=== PATIENT | female | born 1985 | race Caucasian/White ===

== ENCOUNTER 2016-09-02 09:00 | Inpatient (IN) | payer OTHER ==
[~2016-09-02] VITALS: Ht 165.1 cm; Wt 92.7 kg
[~2016-09-02 09:00] MED LIST: OMEP20CA9 PO; TRIA80OI TOP
[2016-09-02] MEDS ORDERED: ONDANSETRON 4 MG INJ IV STA (09:17)
[2016-09-02] MEDS ORDERED: morphine 4 MG/ML VIAL IV STA ×2 (09:17→10:31)
--- NOTE | 2016-09-02 09:37 | ERD ---
ER Documentation Chief Complaint Date/Time DATE: 09/02/16 TIME: 09:34 Chief Complaint ap, hx gallstones HPI Patient is a 31-year-old female who presents to the ED with right upper quadrant and epigastric pain 1 day. She states that she has had this pain in the past and has a history of gallstones. She states that she is scheduled for surgery but is unsure of the day and is waiting to hear which date she will be scheduled this month or next. She states that the pain came on suddenly last night. This is exactly the same pain that she has experienced in the past. She also complains of nausea with no vomiting. She denies radiation of pain. She denies chest pain, cough, shortness of breath or difficulty breathing. She denies headache or dizziness. She denies diarrhea. Or dysuria. Has been taking tramadol for her pain however minimal relief in the last day. ROS All systems reviewed and are negative except as per history of present illness. Medications Home Meds Active Scripts Triamcinolone Acetonide (Triamcinolone Acetonide) 0.025% - 30 Gm Oint..gm., 1 APPLIC TOP BID, #1 TUB Prov:CHEVY BURROUGHS. IT PROFESSIONAL 11/04/15 Omeprazole* (Prilosec*) 20 Mg Capsule.dr, 20 MG PO DAILY for 14 Days, CAP Prov:CHEVY BURROUGHS. IT PROFESSIONAL 11/04/15 Allergies Allergies: Coded Allergies: sulfamethoxazole (Verified Allergy, Unknown, hives, 09/02/16) trimethoprim (Verified Allergy, Unknown, hives, 09/02/16) PMhx/Soc Hx Respiratory Disorders: Yes (asthma) Hx Psychiatric Problems: Yes (schizoprenia) Hx Alcohol Use: Yes (occassional) Hx Substance Use: No Hx Tobacco Use: No Physical Exam Vitals Vital Signs Date Time Temp Pulse Resp B/P Pulse Ox O2 Delivery O2 Flow Rate FiO2 09/02/16 09:02 98.1 88 20 128/75 99 Physical Exam GENERAL: Well-developed, well-nourished female. Appears in distress LUNG: Clear to auscultation bilaterally. No rhonchi, wheezing, rales or coarse breath sounds. HEART: Regular rate and rhythm. No murmurs, rubs or gallops. ABDOMEN: No scars, ecchymosis or rashes noted. Soft, and nondistended. Positive bowel sounds in all four quadrants. No rebound tenderness, no guarding. (-) McBurneys point tenderness. No CVA tenderness. Tenderness in the right upper quadrant and epigastric. BACK: No midline tenderness. Extremities: Equal pulses bilaterally. No peripheral clubbing, cyanosis or edema. No unilateral leg swelling. NEUROLOGIC: Alert and oriented. Moving all four extremities. 5/5 strength in all extremities. Normal speech. Steady gait. SKIN: Normal color. Warm and dry. No rashes or lesions. Capillary refill < 2 seconds Result Diagram: 09/02/1692809/02/16928 Results 24 hrs Laboratory Tests Test 09/02/16 09:29 White Blood Count 7.110^3/ul Red Blood Count 4.4510^6/ul Hemoglobin 12.9g/dl Hematocrit 39.8% Mean Corpuscular Volume 89.4fl Mean Corpuscular Hemoglobin 29.0pg Mean Corpuscular Hemoglobin Concent 32.4g/dl Red Cell Distribution Width 12.8% Platelet Count 71652^3/UL Mean Platelet Volume 9.0fl Neutrophils % 46.1% Lymphocytes % 37.5% Monocytes % 7.9% Eosinophils % 7.8% Basophils % 0.6% Nucleated Red Blood Cells % 0.0/100WBC Neutrophils # 3.310^3/ul Lymphocytes # 2.710^3/ul Monocytes # 0.610^3/ul Eosinophils # 0.610^3/ul Basophils # 0.010^3/ul Nucleated Red Blood Cells # 0.010^3/ul Sodium Level 138mmol/L Potassium Level 4.1mmol/L Chloride Level 105mmol/L Carbon Dioxide Level 23mmol/L Anion Gap 14 Blood Urea Nitrogen 16mg/dl Creatinine 0.89mg/dl Glucose Level 84mg/dl Calcium Level 9.0mg/dl Total Bilirubin 0.3mg/dl Direct Bilirubin 0.00mg/dl Indirect Bilirubin 0.3mg/dl Aspartate Amino Transf (AST/SGOT) 21IU/L Alanine Aminotransferase (ALT/SGPT) 26IU/L Alkaline Phosphatase 57IU/L Total Protein 7.7g/dl Albumin 4.5g/dl Globulin 3.20g/dl Albumin/Globulin Ratio 1.40 Lipase 206U/L Current Medications Medications (Trade) Dose Ordered Sig/Kate Route PRN Reason Start Time Stop Time Status Last Admin Dose Admin Morphine Sulfate (morphine) 4 mg ONCE STAT IV 09/02/16 09:17 09/02/16 09:20 DC 09/02/16 09:30 Ondansetron HCl (Zofran Inj) 4 mg ONCE STAT IV 09/02/16 09:17 09/02/16 09:20 DC 09/02/16 09:30 Morphine Sulfate (morphine) 4 mg ONCE STAT IV 09/02/16 10:31 09/02/16 10:34 DC 09/02/16 10:37 Procedures/MDM ER COURSE: I kept the patient and/or family informed of laboratory and diagnostic imaging results throughout the emergency room course. EKG, MONITORS, & DIAGNOSTIC IMAGING: [place] [id number] Radiology Main Line: [phone] DIAGNOSTIC IMAGING REPORT Patient: MCKENZIE RODRIGUEZ : 1985 Age: 31 Sex: F MR #: [id number] DOS: 09/02/16 0917 Ordering MD: JENNIE REYEZ PA-C Location: [facility] Room/Bed: PROCEDURE: US Abdomen. CLINICAL INDICATION: abdominal pain TECHNIQUE: Multiple real-time images were acquired of the patient's right upper quadrant abdomen and retroperitoneum utilizing a high resolution transducer. COMPARISON: None FINDINGS: The liver demonstrates normal echogenicity. The liver is normal in size and no focal solid lesions are seen. The liver measures 16.7 cm in length. The portal vein is patent with normal direction of flow. No intrahepatic biliary dilatation is seen. Multiple stones are seen within the gallbladder. The gallbladder wall is mildly thickened, measuring 4 mm. There is no pericholecystic fluid noted. The common bile duct measures 4 mm. The visualized portions of the pancreas are unremarkable. The tail of the pancreas is not seen. No free fluid is identified. The right kidney is normal in size, and demonstrate normal echogenicity and cortical thickness. The right kidney measures 10.5 cm in long dimension. There is no evidence of hydronephrosis. There are no kidney stones. RPTAT: AA IMPRESSION: Cholelithiasis with mild gallbladder wall thickening . No evidence of pericholecystic fluid. .Marcelo Christian MD, MD Date Time Electronically viewed and signed by .Marcelo Christian MD, MD on 09/02/2016 10: 21 .S/ CC: JENNIE REYEZ PA-C Zofran, 4 mg of morphine. 4 mg of morphine LAB INTERPRETATION: CBC showed no evidence of systemic infection or severe anemia. CMP showed no evidence of electrolyte abnormalities, severe acidosis, alkalosis, renal failure , or liver disease. Lipase showed no evidence of acute pancreatitis. UA showed no evidence of leukocytes, nitrites or hematuria. Urine test was negative. MEDICAL DECISION MAKING: This is a 31-year-old female who presents with abdominal pain 1 day. Vital signs were reviewed. Patient is afebrile. Patient is not hypoxic. I consulted with regarding this patient who came to examine patient at bedside. He also reviewed her laboratory studies and imaging results. Patient's ultrasound shows that she has cholelithiasis with mild gallbladder wall thickening. I reassess patient after 8 mg of morphine. She stated that her pain is a 5 out of 10. But she states that after the morphine wears off she has an increase in pain. I spoke to Dr. Pan on the phone who stated that he would accept her and admit her to Dr. Fernandez. I consulted with Dr. Perez who will admit patient. Patient was started on zosyn and IV fluids were given. Patient was stable at transfer to ED1. All questions were answered. Departure Diagnosis: Primary Impression: Cholelithiasis Condition: Fair JENNIE REYEZ PA-C Sep 02, 2016 09:36
[2016-09-02 09:39] LABS: ADD SCAN DIFF NO
[2016-09-02 09:43] LABS: BASOPHILS % 0.6 % (0.0-2.0); EOSINOPHILS # 0.6 10^3/ul (0.0-0.5); EOSINOPHILS % 7.8 % (0.0-7.0); HEMATOCRIT 39.8 % (37.0-47.0); HEMOGLOBIN 12.9 g/dl (12.0-16.0); LYMPHOCYTES # 2.7 10^3/ul (0.8-2.9); LYMPHOCYTES % 37.5 % (15.0-51.0); MEAN CORPUSCULAR HGB CONC 32.4 g/dl (32.0-37.0); MEAN CORPUSCULAR VOLUME 89.4 fl (82.0-101.0); MONOCYTE # 0.6 10^3/ul (0.3-0.9); MONOCYTES % 7.9 % (0.0-11.0); NEUTROPHIL # 3.3 10^3/ul (1.6-7.5); NEUTROPHILS % 46.1 % (39.0-77.0); PLATELET COUNT 364 10^3/UL (140-415); RED BLOOD COUNT 4.45 10^6/ul (4.20-5.40); RED CELL DISTRIBUTION WIDTH 12.8 % (11.5-14.5); WHITE BLOOD COUNT 7.1 10^3/ul (4.8-10.8)
[2016-09-02 09:49] LABS: ALBUMIN 4.5 g/dl (3.3-4.9)
[2016-09-02 09:50] LABS: POTASSIUM 4.1 mmol/L (3.5-5.1)
[2016-09-02 09:52] LABS: BILIRUBIN,INDIRECT 0.3 mg/dl (0-1.1); BILIRUBIN,TOTAL 0.3 mg/dl (0.2-1.3); CREATININE 0.89 mg/dl (0.44-1.00)
[2016-09-02 09:53] LABS: ALBUMIN/GLOBULIN RATIO 1.4; TOTAL PROTEIN 7.7 g/dl (6.1-8.1)
--- NOTE | 2016-09-02 10:21 | RADRPT ---
PROCEDURE: US Abdomen. CLINICAL INDICATION: abdominal pain TECHNIQUE: Multiple real-time images were acquired of the patient's right upper quadrant abdomen a nd retroperitoneum utilizing a high resolution transducer. COMPARISON: None FINDINGS: The liver demonstrates normal echogenicity. The liver is normal in size and no focal solid lesions are seen. The liver measures 16.7 cm in length. The portal vein is patent with normal direction of f low. No intrahepatic biliary dilatation is seen. Multiple stones are seen within the gallbladder. The gallbladder wall is mildly thickened, measuring 4 mm. There is no pericholecystic fluid noted. The common bile duct measures 4 mm. The visualized portions of the pancreas are unremarkable. The tail of the pancreas is not seen. No free fluid is identified. The right kidney is normal in size, and demonstrate normal echogenicity and cortical thickness. The right kidney measures 10.5 cm in long dimension. There is no evidence of hydronephrosis. There are no kidney stones. RPTAT: AA IMPRESSION: Cholelithiasis with mild gallbladder wall thickening . No evidence of pericholecystic fluid. .Marcelo Christian MD, MD Date Time Electronically viewed and signed by .Marcelo Christian MD, on 09/02/2016 10:21 .S/
[2016-09-02 11:53] LABS: URINE COLOR LT. YELLOW (YELLOW); URINE GLUCOSE (Dip) NEGATIVE (NEGATIVE); URINE TOTAL PROTEIN (Dip) NEGATIVE (NEGATIVE)
[2016-09-02 11:54] LABS: ADD UMIC YES; URINE BILIRUBIN (Dip) NEGATIVE (NEGATIVE); URINE BLOOD (Dip) TRACE (NEGATIVE); URINE KETONES (Dip) NEGATIVE (NEGATIVE); URINE LEUKOCYTE ESTERASE (Dip) NEGATIVE (NEGATIVE); URINE NITRITE (Dip) NEGATIVE (NEGATIVE); URINE RBCS 0-2 /HPF (0); URINE UROBILINOGEN (Dip) 0.2 E.U./dL (0.1-1.0)
[2016-09-02 12:00] VITALS: TEMP 98.3
[2016-09-02] MEDS ORDERED: SOD CHLORIDE 0.9% 1,000 ML IV ONE (12:00)
[2016-09-02] MEDS ORDERED: PIPER-TAZO 3.375 GM IV (PMX) 100 ML IVPB ONE (12:00)
--- NOTE | 2016-09-02 12:19 | EN ---
Date/Time of Note Date/Time of Note DATE: 09/02/16 TIME: 12:15 ER Progress Note I have seen and evaluated the patient along with the PA and/or LOSS PREVENTION/SAFETY DISTRICT MANAGER provider. I agree with the evaluation and plan of care. Please see their documentation for full ER course and evaluation. In short: This is a pleasant 31-year-old female with prior history of cholelithiasis who presents with abdominal pain. On exam: Focal tenderness to the right upper quadrant, no peritonitis Assessment and plan: Gallbladder ultrasound shows early gallbladder wall thickening. No leukocytosis , no evidence of hepatobiliary obstruction. Her general surgeon, Dr. Sarmiento would like the patient admitted for evaluation and treatment of acute cholecystitis with surgical intervention. The patient was written for antibiotics, given IV fluids. Her pain is well controlled. Dr. Sarmiento would like Dr. Fernandez to admit the patient. Accepting care team and consultations: I discussed the current laboratory data, diagnostic imaging and emergency care provided. Admitting team: Dr. Fernandez Admitting team indication: Insurance directed Consulting services: General surgeon CARLOS Mendoza MD Sep 02, 2016 12:19
[2016-09-02] MEDS ORDERED: ONDANSETRON 4 MG INJ IV PRN ×2 (12:30→18:00)
[2016-09-02] MEDS ORDERED: ACETAMINOPHEN 325 MG TAB PO PRN (12:30)
--- NOTE | 2016-09-02 13:07 | CONS ---
DATE OF ADMISSION: 09/02/2016 DATE OF CONSULTATION: 09/02/2016 HISTORY OF PRESENT ILLNESS: This is a 31-year-old female who was scheduled to have a laparoscopic c holecystectomy, presenting to the ER with nausea and acute abdominal pain. She was evaluated by the ER doctor and underwent imaging with an ultrasound, shows cholelithiasis with mild gallbladder wall thickening, no evidence of pericholecystic fluid. She appears to have intractable pain and nausea and is unable to have any tolerance of oral diet and presents to the ER. PAST MEDICAL HISTORY: None. PAST SURGICAL HISTORY: None. ALLERGIES: SEPTRA WITH RASHES. SOCIAL HISTORY: Denies any smoking or tobacco. REVIEW OF SYSTEMS: All negative except for what was mentioned in the HPI. MEDICATIONS: 1. Omeprazole. 2. Triamcinolone: VITAL SIGNS: Temperature 98.3, pulse is 62, respiratory rate is 20, blood pressure is 114/63, pulse oximetry is 100%. LABORATORY DATA: White blood cell count 7.1, hemoglobin 12.9, platelets 364. Chemistries: Sodium 138, potassium 4.1, chloride 105, carbon dioxide 23, BUN 16, creatinine 0.89, glucose 94, calcium 9. 0. Total bilirubin 0.3, AST 21, ALT 26, alkaline phosphatase 57, lipase is 206. PHYSICAL EXAMINATION: GENERAL: In no acute distress. CARDIOVASCULAR: Regular rate and rhythm. LUNGS: Clear to auscultation. ABDOMEN: Focal right upper quadrant tenderness. No peritoneal signs, no rebound tenderness. ASSESSMENT AND PLAN: This is a 31-year-old female with symptoms of cholecystitis versus severe intr actable pain and cholelithiasis. The patient will be admitted for IV antibiotics and we will schedu le for laparoscopic cholecystectomy. Dictated By: ANAHI MORA/MILTON Conf#: [id number] DID#: [id number]
[2016-09-02 15:34] VITALS: BP 110/62; PULSE 64; RESP 18
[2016-09-02 15:41] VITALS: Ht 165.1 cm; Wt 92.7 kg
[2016-09-02] MEDS: D5W-0.45 NACL + KCL 20 MEQ 1,000 ML IV SCH (15:57)
[2016-09-02] MEDS: DIPHENHYDRAMINE 50 MG INJ IV PRN ×2 (15:57→21:35)
[2016-09-02] MEDS: morphine 2 MG INJ IV PRN ×2 (15:58→20:49)
--- NOTE | 2016-09-02 17:53 | HP ---
DATE OF ADMISSION: 09/02/2016 CHIEF COMPLAINT: Right upper quadrant pain. HISTORY OF PRESENT ILLNESS: The patient is a 31-year-old female with known history of cholelithiasi s and has had multiple episodes of biliary colic and was seen by Dr. Sarmiento as an outpatient. The nasrin ent was scheduled to undergo elective laparoscopic cholecystectomy as an outpatient; however, she pr esented to the ER with right upper quadrant pain associated with nausea. The patient did not have a ny fever or chills. No history of dysuria or hematuria. No history of headache, dizziness, syncope . No history of bleeding from any site. Patient is being admitted for further evaluation. PAST SURGICAL HISTORY: None. ALLERGIES: SULFA. SOCIAL HISTORY: No smoking, no alcohol. MEDICATIONS PRIOR TO ADMISSION: 1. Ultram. 2. Omeprazole. PHYSICAL EXAMINATION: GENERAL: The patient is conscious, awake, alert, fairly oriented. VITAL SIGNS: Temperature 97.8, pulse 64, respirations 18, blood pressure 110/62, O2 saturation 96 o n room air. HEENT: Conjunctivae and lids are normal. Oropharynx clear. NECK: No mass, no thyromegaly. CHEST: Fairly clear. CARDIOVASCULAR: S1, S2 normal. No murmur. ABDOMEN: Soft. Right upper quadrant tenderness present. No guarding or rigidity. Bowel sounds pr esent. EXTREMITIES: No leg edema. NEUROLOGIC: The patient is awake, alert, fairly oriented with no gross focal deficit. LABORATORY DATA: WBC 7.1, hemoglobin 12.9, platelets 364. Chem 18 normal. Lipase normal. Gallbla dder ultrasound revealed cholelithiasis with mild gallbladder wall thickening. IMPRESSION: Acute cholecystitis due to gallstones. PLAN: Patient admitted on medical floor. Patient will be kept n.p.o. and will be started on IV flu id, IV Zosyn, IV morphine, IV Zofran, and will use SCD for DVT prophylaxis. Patient has been seen b y Dr. Sarmiento and will be taken to ____. Plan of care discussed with patient's family. Dictated By: FILEMON WIN/MILTON Conf#: [id number] DID#: [id number]
[2016-09-02 21:08] VITALS: BP 105/62; RESP 20
[2016-09-02] MEDS: PIPER-TAZO 3.375 GM IV (PMX) 100 ML IVPB SCH (21:30)
[2016-09-03] VITALS (14 sets, daily range): BP systolic 95–120; BP diastolic 46–64; PULSE 48–58; RESP 16–24
[2016-09-03] MEDS: morphine 2 MG INJ IV PRN ×5 (00:46→21:41)
[2016-09-03] MEDS: D5W-0.45 NACL + KCL 20 MEQ 1,000 ML IV SCH ×3 (01:30→22:34)
[2016-09-03] MEDS: DIPHENHYDRAMINE 50 MG INJ IV PRN ×2 (04:30→10:57)
[2016-09-03] MEDS: PIPER-TAZO 3.375 GM IV (PMX) 100 ML IVPB SCH ×3 (05:18→22:34)
[2016-09-03] MEDS ORDERED: LIDOCAINE 2% (SDV) 5 ML INJ ONE (07:00)
[2016-09-03] MEDS ORDERED: ROCURONIUM 50 MG INJ ONE (07:00)
[2016-09-03 07:11] LABS: ADD SCAN DIFF NO
[2016-09-03 07:23] LABS: BASOPHILS % 0.5 % (0.0-2.0); EOSINOPHILS # 0.4 10^3/ul (0.0-0.5); HEMATOCRIT 36.9 % (37.0-47.0); HEMOGLOBIN 11.8 g/dl (12.0-16.0); LYMPHOCYTES # 2.1 10^3/ul (0.8-2.9); LYMPHOCYTES % 35.2 % (15.0-51.0); MEAN CORPUSCULAR HEMOGLOBIN 28.9 pg (29.0-33.0); MEAN CORPUSCULAR VOLUME 90.2 fl (82.0-101.0); MEAN PLATELET VOLUME 9.2 fl (7.4-10.4); MONOCYTE # 0.4 10^3/ul (0.3-0.9); NEUTROPHILS % 50.1 % (39.0-77.0); PLATELET COUNT 301 10^3/UL (140-415); RED BLOOD COUNT 4.09 10^6/ul (4.20-5.40)
[2016-09-03 07:34] LABS: POTASSIUM 3.8 mmol/L (3.5-5.1)
[2016-09-03 07:36] LABS: CREATININE 0.84 mg/dl (0.44-1.00)
[2016-09-03 07:37] LABS: CALCIUM 8.4 mg/dl (8.4-10.2)
--- NOTE | 2016-09-03 18:34 | PN ---
Date/Time of Note Date/Time of Note DATE: 09/03/16 TIME: 18:32 Assessment/Plan Lines/Catheters IV Catheter Type (from Nrsg): Peripheral IV Urinary Cath still in place: No Subjective 24 Hr Interval Summary Free Text/Dictation Patient seen at 1650- scheduled for surgery . Denies any complaints. Family at bed side- all qs answered. Eyes: no complaints ENT: no complaints Respiratory: no complaints Cardiovascular: no complaints Gastrointestinal: pain Genitourinary: no complaints Musculoskeletal: no complaints Skin: no complaints Neurologic: no complaints Endocrine: no complaints Lymphatic: no complaints Psychological: no complaints Immunologic: no complaints Exam/Review of Systems Vital Signs Vitals Vital Signs Date Time Temp Pulse Resp B/P Pulse Ox O2 Delivery O2 Flow Rate FiO2 09/03/16 17:13 97.7 57 16 106/59 95 Room Air Intake and Output 09/02/16 09/02/16 09/03/16 15:00 23:00 07:00 Intake Total 100 ml 900 ml Balance 100 ml 900 ml Exam Constitutional: alert, oriented, well developed Psych: nl mood/affect Head: atraumatic Eyes: EOMI ENMT: nl external ears & nose Neck: non-tender Respiratory: clear to auscultation Cardiovascular: nl pulses Gastrointestinal: soft, tender Musculoskeletal: nl extremities to inspection Neurological: nl mental status, nl speech, nl strength Lymph: nontender Results Result Diagram: 09/03/16 0606 09/03/16 0606 Results 24 hrs Laboratory Tests Test 09/03/16 06:06 White Blood Count 6.0 Red Blood Count 4.09 L Hemoglobin 11.8 L Hematocrit 36.9 L Mean Corpuscular Volume 90.2 Mean Corpuscular Hemoglobin 28.9 L Mean Corpuscular Hemoglobin Concent 32.0 Red Cell Distribution Width 13.0 Platelet Count 301 Mean Platelet Volume 9.2 Neutrophils % 50.1 Lymphocytes % 35.2 Monocytes % 7.0 Eosinophils % 7.0 Basophils % 0.5 Nucleated Red Blood Cells % 0.0 Neutrophils # 3.0 Lymphocytes # 2.1 Monocytes # 0.4 Eosinophils # 0.4 Basophils # 0.0 Nucleated Red Blood Cells # 0.0 Sodium Level 137 Potassium Level 3.8 Chloride Level 105 Carbon Dioxide Level 24 Anion Gap 12 Blood Urea Nitrogen 10 Creatinine 0.84 Glucose Level 92 Calcium Level 8.4 Medications Medications Current Medications Ondansetron HCl 4 mg 4 mg Q6H PRN IV NAUSEA AND/OR VOMITING Last administered on 09/03/16 09:36; Admin Dose 4 MG; Start 09/02/16 at 18:00 Potassium Chloride/Dextrose/ Sod Cl 1,000 ml @ 100 mls/hr Q10H IV Last administered on 09/03/16 07:42; Admin Dose 100 MLS/HR; Start 09/02/16 at 15:30 Piperacillin Sod/ Tazobactam Sod (Zosyn 3.375gm/ 100 ml (Pmx)) 100 ml @ 200 mls /hr Q8 IVPB Last administered on 09/03/16 14:34; Admin Dose 200 MLS/HR; Start 09/02/16 at 22:00 Morphine Sulfate (morphine) 2 mg Q3H PRN IV PAIN LEVEL 7-10 Last administered on 09/03/16 14:31; Admin Dose 2 MG; Start 09/02/16 at 15:30 Diphenhydramine HCl (Benadryl) 25 mg Q6H PRN IV ITCHING Last administered on 10:57; Admin Dose 25 MG; Start 09/02/16 at 15:30 CARL MIRANDA Sep 03, 2016 18:34
[2016-09-03] MEDS ORDERED: BUPIVACAINE 0.25% (MPF) 30 ML INJ ONE (18:37)
[2016-09-03] MEDS ORDERED: PROPOFOL 60 ML ONE (19:04)
[2016-09-03] MEDS ORDERED: MIDAZOLAM 1 MG/ML 2 ML INJ ONE ×2 (19:05→20:01)
[2016-09-03] MEDS ORDERED: FENTAnyl 50 MCG/ML VIAL ONE (19:06)
[2016-09-03] MEDS ORDERED: CEFAZOLIN 1 GM INJ ONE (19:26)
[2016-09-03] MEDS ORDERED: DEXAMETHASONE 4 MG/ML 1 ML INJ ONE (19:35)
[2016-09-03] MEDS ORDERED: ONDANSETRON 4 MG INJ ONE (19:35)
[2016-09-03] MEDS ORDERED: LACTATED RINGER'S 1,000 ML IV SCH (19:37)
[2016-09-03] MEDS ORDERED: HYDROmorphONE (0.2 MG/ML) 10ML SYG IV ONE (19:57)
[2016-09-03] MEDS ORDERED: HYDROCODONE/APAP (5/325) TAB PO PRN (20:00)
[2016-09-03] MEDS ORDERED: morphine 2 MG INJ IV PRN (20:00)
[2016-09-03] MEDS ORDERED: LABETALOL HCL 20MG INJ IV PRN (20:00)
[2016-09-03] MEDS ORDERED: HYDROmorphONE (0.2 MG/ML) 10ML SYG IV PRN ×3 (20:00)
[2016-09-03] MEDS ORDERED: hydrALAzine 20 MG INJ IV PRN (20:00)
[2016-09-03] MEDS ORDERED: EPHEDrine SULFATE 50 MG/5 ML SYG IV PRN (20:00)
[2016-09-03] MEDS ORDERED: ONDANSETRON 4 MG INJ IV PRN (20:00)
[2016-09-03] MEDS ORDERED: MEPERIDINE 25 MG INJ IV PRN (20:00)
[2016-09-03] MEDS ORDERED: FENTAnyl 50 MCG/ML VIAL IV PRN ×3 (20:00)
--- NOTE | 2016-09-03 20:47 | OPR ---
DATE OF OPERATION: 09/02/2016 INDICATION: This is a 31-year-old female with symptomatic gallstones and evidence of cholecystitis. She presented to the ER and was admitted because of intractable pain and was unable to tolerate p. o. She is taken to the OR for laparoscopic cholecystectomy. Risks, alternatives, benefits, and per sonnel were discussed with the patient. Patient expressed understanding and consents to the operati on. PREOPERATIVE DIAGNOSIS: Cholecystitis and symptomatic cholelithiasis. POSTOPERATIVE DIAGNOSIS: Cholecystitis and symptomatic cholelithiasis. OPERATION: Laparoscopic cholecystectomy. SURGEON: Lesli Sarmiento MD SPECIMENS: Gallbladder. COMPLICATIONS: None. ANESTHESIA: General. PROCEDURE: The patient was taken to the OR and prepped and draped in the usual sterile fashion. Walters rgical timeout was performed. IV antibiotics were given. Infraumbilical incision was made transver sely with a 15 blade. Dissection cautery was carried down to the fascia which was divided with curv ed Willis scissors. An 0 Vicryl U-stitch was placed into the fascia. Balloon Emily trocar was intro duced. Pneumoperitoneum was established. Midepigastric 12 mm optical trocar, right upper quadrant and right upper flank 5 mm optical trocars are placed under direct visualization. Upon initial insp ection, there were some adhesions to the gallbladder which were taken down bluntly. The cystic duct is identified. The critical view is established. The cystic duct and cystic artery are divided us ing a 35 mm [place] vascular load stapler. The gallbladder was taken off the gallbladder bed. Stap le lines reinforced with clips. There was good hemostasis. Gallbladder is retrieved using EndoCatc h bag. Ports were removed under direct visualization. The 0 Vicryl U-stitch was tied down. Skin w as closed using skin aretha. Local anesthesia was injected. Dry dressings were applied. Dictated By: LESLI SARMIENTO MD SB/MILTON Conf#: [id number] DID#: [id number]
[2016-09-03] MEDS: CEFAZOLIN 2 GM/50 ML (PMX) 50 ML IVPB SCH (23:12)
[2016-09-03 23:59] LABS: ADD SCAN DIFF NO
[2016-09-04 00:01] LABS: ABNORMAL IP MESSAGE 1; BASOPHILS % 0.1 % (0.0-2.0); EOSINOPHILS % 0.1 % (0.0-7.0); HEMATOCRIT 36.6 % (37.0-47.0); HEMOGLOBIN 11.8 g/dl (12.0-16.0); LYMPHOCYTES # 0.6 10^3/ul (0.8-2.9); LYMPHOCYTES % 5.1 % (15.0-51.0); MEAN CORPUSCULAR HEMOGLOBIN 28.6 pg (29.0-33.0); MEAN CORPUSCULAR HGB CONC 32.2 g/dl (32.0-37.0); MEAN CORPUSCULAR VOLUME 88.6 fl (82.0-101.0); MEAN PLATELET VOLUME 9.1 fl (7.4-10.4); MONOCYTE # 0.1 10^3/ul (0.3-0.9); MONOCYTES % 0.5 % (0.0-11.0); NEUTROPHIL # 10.9 10^3/ul (1.6-7.5); NEUTROPHILS % 93.9 % (39.0-77.0); PLATELET COUNT 324 10^3/UL (140-415); RED BLOOD COUNT 4.13 10^6/ul (4.20-5.40); RED CELL DISTRIBUTION WIDTH 12.7 % (11.5-14.5); WHITE BLOOD COUNT 11.7 10^3/ul (4.8-10.8)
[2016-09-04 00:19] LABS: ALBUMIN 3.8 g/dl (3.3-4.9); ALBUMIN/GLOBULIN RATIO 1.31; BILIRUBIN,INDIRECT 0.4 mg/dl (0-1.1); BILIRUBIN,TOTAL 0.4 mg/dl (0.2-1.3); CALCIUM 8.5 mg/dl (8.4-10.2); CREATININE 0.73 mg/dl (0.44-1.00); POTASSIUM 4.1 mmol/L (3.5-5.1); TOTAL PROTEIN 6.7 g/dl (6.1-8.1)
[2016-09-04] MEDS: morphine 2 MG INJ IV PRN ×6 (02:34→17:38)
[2016-09-04] MEDS: CEFAZOLIN 2 GM/50 ML (PMX) 50 ML IVPB SCH ×2 (04:40→11:10)
[2016-09-04] MEDS: PIPER-TAZO 3.375 GM IV (PMX) 100 ML IVPB SCH ×3 (06:10→22:06)
[2016-09-04 07:11] LABS: ADD SCAN DIFF NO
[2016-09-04] MEDS: D5W-0.45 NACL + KCL 20 MEQ 1,000 ML IV SCH ×3 (07:16→16:47)
[2016-09-04 07:31] LABS: BASOPHILS % 0.2 % (0.0-2.0); EOSINOPHILS % 0.2 % (0.0-7.0); HEMATOCRIT 37.4 % (37.0-47.0); HEMOGLOBIN 12.3 g/dl (12.0-16.0); LYMPHOCYTES # 0.6 10^3/ul (0.8-2.9); LYMPHOCYTES % 10.7 % (15.0-51.0); MEAN CORPUSCULAR HEMOGLOBIN 28.9 pg (29.0-33.0); MEAN CORPUSCULAR HGB CONC 32.9 g/dl (32.0-37.0); MEAN PLATELET VOLUME 9.4 fl (7.4-10.4); MONOCYTE # 0.1 10^3/ul (0.3-0.9); MONOCYTES % 1.4 % (0.0-11.0); NEUTROPHIL # 5.1 10^3/ul (1.6-7.5); NEUTROPHILS % 87.2 % (39.0-77.0); PLATELET COUNT 343 10^3/UL (140-415); RED BLOOD COUNT 4.25 10^6/ul (4.20-5.40); RED CELL DISTRIBUTION WIDTH 12.5 % (11.5-14.5); WHITE BLOOD COUNT 5.8 10^3/ul (4.8-10.8)
[2016-09-04 07:42] LABS: POTASSIUM 4.4 mmol/L (3.5-5.1)
[2016-09-04 07:44] LABS: ALBUMIN/GLOBULIN RATIO 1.29; BILIRUBIN,INDIRECT 0.5 mg/dl (0-1.1); BILIRUBIN,TOTAL 0.5 mg/dl (0.2-1.3); CALCIUM 8.8 mg/dl (8.4-10.2); CREATININE 0.7 mg/dl (0.44-1.00); TOTAL PROTEIN 7.1 g/dl (6.1-8.1)
[2016-09-04 08:16] VITALS: BP 114/56; PULSE 54; RESP 18
[2016-09-04 08:46] VITALS: BP 114/61; RESP 20
--- NOTE | 2016-09-04 12:37 | PN ---
Date/Time of Note Date/Time of Note DATE: 09/04/16 TIME: 12:36 Assessment/Plan VTE Prophylaxis VTE Prophylaxis Intervention: other Lines/Catheters [facility] Peripheral IV Urinary Cath still in place: No Assessment/Plan Chief Complaint/Hosp Course 1) cholelithiasis - s/p lap cholecystectomy - monitor Problems: Subjective 24 Hr Interval Summary Free Text/Dictation Patient has no complaints Exam/Review of Systems Vital Signs Vitals Vital Signs Date Time Temp Pulse Resp B/P Pulse Ox O2 Delivery O2 Flow Rate FiO2 09/04/16 08:46 98.7 51 20 114/61 100 09/04/16 08:16 Nasal Cannula 2.0 Intake and Output 09/03/16 09/03/16 09/04/16 15:00 23:00 07:00 Intake Total 200 ml 1300 ml 890 ml Output Total 5 ml Balance 200 ml 1295 ml 890 ml Exam Constitutional: well developed Head: atraumatic, normocephalic Respiratory: clear to auscultation Cardiovascular: regular rate and rhythm Gastrointestinal: non-tender, soft Extremities: normal pulses Results Result Diagram: 09/04/16 0524 09/04/16 0524 Results 24 hrs Laboratory Tests Test 09/03/16 23:36 09/04/16 05:24 White Blood Count 11.7 #H 5.8 # Red Blood Count 4.13 L 4.25 Hemoglobin 11.8 L 12.3 Hematocrit 36.6 L 37.4 Mean Corpuscular Volume 88.6 88.0 Mean Corpuscular Hemoglobin 28.6 L 28.9 L Mean Corpuscular Hemoglobin Concent 32.2 32.9 Red Cell Distribution Width 12.7 12.5 Platelet Count 324 343 Mean Platelet Volume 9.1 9.4 Neutrophils % 93.9 H 87.2 H Lymphocytes % 5.1 L 10.7 L Monocytes % 0.5 1.4 Eosinophils % 0.1 0.2 Basophils % 0.1 0.2 Nucleated Red Blood Cells % 0.0 0.0 Neutrophils # 10.9 H 5.1 Lymphocytes # 0.6 L 0.6 L Monocytes # 0.1 L 0.1 L Eosinophils # 0.0 0.0 Basophils # 0.0 0.0 Nucleated Red Blood Cells # 0.0 0.0 Sodium Level 134 L 137 Potassium Level 4.1 4.4 Chloride Level 106 104 Carbon Dioxide Level 22 21 Anion Gap 10 16 Blood Urea Nitrogen 7 6 L Creatinine 0.73 0.70 Glucose Level 142 # 146 Calcium Level 8.5 8.8 Total Bilirubin 0.4 0.5 Direct Bilirubin 0.00 0.00 Indirect Bilirubin 0.4 0.5 Aspartate Amino Transf (AST/SGOT) 204 H 173 H Alanine Aminotransferase (ALT/SGPT) 131 H 155 H Alkaline Phosphatase 84 84 Total Protein 6.7 # 7.1 Albumin 3.8 4.0 Globulin 2.90 3.10 Albumin/Globulin Ratio 1.31 1.29 Medications Medications Current Medications Ondansetron HCl 4 mg 4 mg Q6H PRN IV NAUSEA AND/OR VOMITING Last administered on 09/03/16 09:36; Admin Dose 4 MG; Start 09/02/16 at 18:00 Potassium Chloride/Dextrose/ Sod Cl 1,000 ml @ 100 mls/hr Q10H IV Last administered on 09/03/16 22:34; Admin Dose 100 MLS/HR; Start 09/02/16 at 15:30 Piperacillin Sod/ Tazobactam Sod (Zosyn 3.375gm/ 100 ml (Pmx)) 100 ml @ 200 mls /hr Q8 IVPB Last administered on 09/04/16 06:10; Admin Dose 200 MLS/HR; Start 09/02/16 at 22:00 Morphine Sulfate (morphine) 2 mg Q3H PRN IV PAIN LEVEL 7-10 Last administered on 09/04/16 11:13; Admin Dose 2 MG; Start 09/02/16 at 15:30 Diphenhydramine HCl 25 mg 25 mg Q6H PRN IV ITCHING Last administered on 10:57; Admin Dose 25 MG; Start 09/02/16 at 15:30 Cefazolin Sodium/ Dextrose (Ancef 2 Gm/50 ml (Pmx)) 50 ml @ 100 mls/hr Q8H IVPB Last administered on 09/04/16 11:10; Admin Dose 100 MLS/HR; Start at 20:00; Stop 09/04/16 at 19:59 Morphine Sulfate (morphine) 2 mg Q2H PRN IV PAIN LEVEL 6-10; Start 09/03/16 at 20:00 CAMILO WIGGINS Sep 04, 2016 12:36
[2016-09-04] MEDS: HYDROCODONE/APAP (5/325) TAB PO PRN (20:45)
[2016-09-04 21:06] VITALS: BP 108/58; RESP 19
--- NOTE | 2016-09-04 23:45 | PN ---
DATE: SUBJECTIVE: Complains of too much pain, has been getting morphine every 2 hours, barely has been ou t of bed and walking around. No bowel movement, no passing gas, has tolerated food to some extent. OBJECTIVE: VITAL SIGNS: 98.7, heart rate 51, respiration 20, blood pressure 114/61, saturation 100% on room ai r. LABS: Today, AST 173, ALT 155. Bilirubin total 0.5. Hematology: WBC 5800, hemoglobin 12.3, neutr ophils 87%, high. Platelet is 343. ABDOMEN: Relatively soft, some tenderness in the right upper quadrant around the umbilicus. EXTREMITIES: Legs, no calf tenderness. ASSESSMENT AND PLAN: Postoperative day #1. The patient has too much pain and is not tolerating alejandro d completely yet. No bowel movement, no passing flatus. PLAN: Keep her overnight, switch from IV morphine to p.o. pain medication. If it is stabilized by tomorrow, we will discharge tomorrow. Also, we will repeat the blood test to see what is the enzyme s tomorrow. Dictated By: STEVEN SILVA MD PS/NTS Conf#: [id number] DID#: [id number] CC: ANAHI JANE MD; FILEMON CROWE MD;*End*
[2016-09-05] MEDS: morphine 2 MG INJ IV PRN ×3 (00:25→13:44)
[2016-09-05] MEDS: HYDROCODONE/APAP (5/325) TAB PO PRN ×4 (03:01→16:30)
[2016-09-05] MEDS: D5W-0.45 NACL + KCL 20 MEQ 1,000 ML IV SCH (03:08)
[2016-09-05] MEDS: PIPER-TAZO 3.375 GM IV (PMX) 100 ML IVPB SCH ×2 (05:14→14:32)
[2016-09-05 06:22] LABS: ADD SCAN DIFF NO
[2016-09-05 06:28] LABS: BASOPHILS % 0.1 % (0.0-2.0); EOSINOPHILS # 0.1 10^3/ul (0.0-0.5); EOSINOPHILS % 1.5 % (0.0-7.0); HEMATOCRIT 33.6 % (37.0-47.0); HEMOGLOBIN 10.8 g/dl (12.0-16.0); LYMPHOCYTES # 2.7 10^3/ul (0.8-2.9); LYMPHOCYTES % 37.8 % (15.0-51.0); MEAN CORPUSCULAR HEMOGLOBIN 28.8 pg (29.0-33.0); MEAN CORPUSCULAR HGB CONC 32.1 g/dl (32.0-37.0); MEAN CORPUSCULAR VOLUME 89.6 fl (82.0-101.0); MEAN PLATELET VOLUME 9.5 fl (7.4-10.4); MONOCYTE # 0.6 10^3/ul (0.3-0.9); MONOCYTES % 7.7 % (0.0-11.0); NEUTROPHIL # 3.8 10^3/ul (1.6-7.5); NEUTROPHILS % 52.8 % (39.0-77.0); PLATELET COUNT 303 10^3/UL (140-415); RED BLOOD COUNT 3.75 10^6/ul (4.20-5.40); RED CELL DISTRIBUTION WIDTH 12.9 % (11.5-14.5); WHITE BLOOD COUNT 7.2 10^3/ul (4.8-10.8)
[2016-09-05 06:40] LABS: ALBUMIN 3.4 g/dl (3.3-4.9)
[2016-09-05 06:41] LABS: POTASSIUM 3.8 mmol/L (3.5-5.1)
[2016-09-05 06:43] LABS: ALBUMIN/GLOBULIN RATIO 1.25; BILIRUBIN,INDIRECT 0.1 mg/dl (0-1.1); BILIRUBIN,TOTAL 0.1 mg/dl (0.2-1.3); CALCIUM 8.6 mg/dl (8.4-10.2); CREATININE 0.78 mg/dl (0.44-1.00); TOTAL PROTEIN 6.1 g/dl (6.1-8.1)
[2016-09-05 07:41] VITALS: BP 100/62; RESP 18
--- NOTE | 2016-09-05 13:26 | DS ---
Date/Time of Note Date/Time of Note DATE: 09/05/16 TIME: 13:24 Discharge Summary Admission/Discharge Info Admit Date/Time Sep 02, 2016 at 12:15 Discharge Date/Time 09/05/16 Final Diagnosis 1) cholecystitis Consults surgery Hospital Course Patient comes in with cholecystitis. Patient underwent cholecystectomy which she tolerated. Once patient is doing better she was felt to be stable for discharge 1) cholelithiasis - s/p lap cholecystectomy - monitor Home Meds Active Scripts Triamcinolone Acetonide (Triamcinolone Acetonide) 0.025% - 30 Gm Oint..gm., 1 APPLIC TOP BID, #1 TUB Prov:CHEVY BURROUGHS. TECHNICAL TRAINING MANAGER 11/04/15 Omeprazole* (Prilosec*) 20 Mg Capsule.dr, 20 MG PO DAILY for 14 Days, CAP Prov:CHEVY BURROUGHS. TECHNICAL TRAINING MANAGER 11/04/15 Pending Labs Laboratory Tests Test 09/05/16 04:40 White Blood Count 7.210^3/ul (4.8-10.8) Red Blood Count 3.7510^6/ul (4.20-5.40) Hemoglobin 10.8g/dl (12.0-16.0) Hematocrit 33.6% (37.0-47.0) Mean Corpuscular Volume 89.6fl (82.0-101.0) Mean Corpuscular Hemoglobin 28.8pg (29.0-33.0) Mean Corpuscular Hemoglobin Concent 32.1g/dl (32.0-37.0) Red Cell Distribution Width 12.9% (11.5-14.5) Platelet Count 28309^3/UL (140-415) Mean Platelet Volume 9.5fl (7.4-10.4) Neutrophils % 52.8% (39.0-77.0) Lymphocytes % 37.8% (15.0-51.0) Monocytes % 7.7% (0.0-11.0) Eosinophils % 1.5% (0.0-7.0) Basophils % 0.1% (0.0-2.0) Nucleated Red Blood Cells % 0.0/100WBC (0.0-0.0) Neutrophils # 3.810^3/ul (1.6-7.5) Lymphocytes # 2.710^3/ul (0.8-2.9) Monocytes # 0.610^3/ul (0.3-0.9) Eosinophils # 0.110^3/ul (0.0-0.5) Basophils # 0.010^3/ul (0.0-0.1) Nucleated Red Blood Cells # 0.010^3/ul (0.0-0.0) Sodium Level 138mmol/L (135-144) Potassium Level 3.8mmol/L (3.5-5.1) Chloride Level 104mmol/L (97-110) Carbon Dioxide Level 27mmol/L (21-31) Anion Gap 11 (8-16) Blood Urea Nitrogen 9mg/dl (7-20) Creatinine 0.78mg/dl (0.44-1.00) Glucose Level 112mg/dl (70-220) Calcium Level 8.6mg/dl (8.4-10.2) Total Bilirubin 0.1mg/dl (0.2-1.3) Direct Bilirubin 0.00mg/dl (0.00-0.20) Indirect Bilirubin 0.1mg/dl (0-1.1) Aspartate Amino Transf (AST/SGOT) 68IU/L (15-46) Alanine Aminotransferase (ALT/SGPT) 97IU/L (13-69) Alkaline Phosphatase 60IU/L (42-121) Total Protein 6.1g/dl (6.1-8.1) Albumin 3.4g/dl (3.3-4.9) Globulin 2.70g/dl (1.3-3.2) Albumin/Globulin Ratio 1.25 CAMILO WIGGINS Sep 05, 2016 13:26
--- NOTE | 2016-09-05 16:30 | PN ---
DATE: 09/05/2016 SUBJECTIVE: Feels better, has been passing gas. No nausea, no vomiting, tolerating diet. OBJECTIVE VITAL SIGNS: Stable, no fever. Saturation 98%. ABDOMEN: Soft, bowel sounds present. EXTREMITIES: Legs no calf tenderness. LABORATORY DATA: Sodium, potassium is normal. Bilirubin is 0.1, SGOT and SGPT trending down 68, 97 % respectively. (AST down to 68 and ALT down to 97). PLAN: The patient can be discharged home today. Follow up by Dr. Sarmiento in the office next week. The patient to call the office and make an appointment. Prescription will be given for pain medication. Dictated By: STEVEN RODRÍGUEZ/MILTON Conf#: [id number] DID#: [id number]
[2016-09-05 16:35] VITALS: BP 105/52; PULSE 52
== END 2016-09-05 17:38 | disposition home or self-care (01) | DRG 419 ==
LOC: FTE 09:00 → PP2 12:15
PROVIDERS: ADMIT Internal Medicine; ATTEND Internal Medicine
PROC: 0FT44ZZ Resection of Gallbladder, Percutaneous Endoscopic Approach (ICD-10-PCS; principal; 2016-09-02)
DX: K80.10 Calculus of gallbladder with chronic cholecystitis without obstruction (principal); Z88.2 Allergy status to sulfonamides
CPT/HCPCS: 36415; 76705; 80048; 80053; 81001; 81003; 83690; 85025; 88304; 96374; 96375; 96376; J0690; J1100; J1170; J1200; J2250; J2270; J2405; J2543; J3010; J3480; J7030; J7120

== ENCOUNTER 2016-12-20 18:58 | Emergency (ER) | END 2016-12-20 22:26 | disposition home or self-care (01) | DX: J02.9 Acute pharyngitis, unspecified (principal); J45.909 Unspecified asthma, uncomplicated | CPT/HCPCS: 87591; 96372; J0561; J1100; Z7502; Z7610 ==

== ENCOUNTER 2018-07-18 12:41 | Emergency (ER) | payer OTHER ==
[~2018-07-18] VITALS: Ht 165.1 cm; Wt 102.1 kg
[~2018-07-18 12:41] MED LIST changes: +ACET500C5 PO; +IBUP-1542 PO
[2018-07-18 12:58] VITALS: BP 144/64; PULSE 84; RESP 18; Ht 165.1 cm; Wt 102.1 kg
[2018-07-18] MEDS ORDERED: IBUPROFEN 600 MG TAB PO ONE (15:00)
[2018-07-18] MEDS ORDERED: IBUP-1542 PO (15:52)
--- NOTE | 2018-07-18 15:55 | ERD ---
ER Documentation Chief Complaint Chief Complaint left wrist pain-no injury- x 3 months. denies injury HPI 32-year-old female presents with pain at the base of her left thumb for the last 3 months. She does do repetitive motion for work. She denies any fall or trauma. ROS All systems reviewed and are negative except as per history of present illness. Medications Home Meds Active Scripts Ibuprofen* (Motrin*) 600 Mg Tab, 600 MG PO Q6, #30 TAB Prov:EMMY RUBIO MD 07/18/18 Ibuprofen* (Motrin*) 600 Mg Tab, 600 MG PO Q6, #30 TAB Prov:JENNIE REYEZ PA-C 12/20/16 Acetaminophen* (Tylophen*) 500 Mg Capsule, 1 CAP PO Q6H PRN for PAIN AND OR ELEVATED TEMP, #20 CAP Prov:JENNIE REYEZ PA-C 12/20/16 Triamcinolone Acetonide (Triamcinolone Acetonide) 0.025% - 30 Gm Oint..gm., 1 APPLIC TOP BID, #1 TUB Prov:CHEVY BURROUGHS NP 11/04/15 Omeprazole* (Prilosec*) 20 Mg Capsule.dr, 20 MG PO DAILY for 14 Days, CAP Prov:CHEVY BURROUGHS. SAP PP CONSULTANT 11/04/15 Allergies Allergies: Coded Allergies: sulfamethoxazole (Verified Allergy, Unknown, hives, 09/02/16) trimethoprim (Verified Allergy, Unknown, hives, 09/02/16) PMhx/Soc History of Surgery: Yes (choley) Anesthesia Reaction: No Hx Neurological Disorder: No Hx Respiratory Disorders: Yes (Asthma) Hx Cardiac Disorders: No Hx Psychiatric Problems: Yes (Schizophrenia, Depression, Anxiety) Hx Miscellaneous Medical Probl: No Hx Alcohol Use: No Hx Substance Use: No Hx Tobacco Use: No FmHx Family History: No diabetes, No coronary disease, No other Physical Exam Vitals Vital Signs Date Temp Pulse Resp B/P (MAP) Pulse Ox O2 O2 Flow FiO2 Time Delivery Rate 07/18/18 99.3 84 18 144/64 98 12:58 (90) Physical Exam Const: No acute distress Head: Atraumatic Eyes: Normal Conjunctiva ENT: Normal External Ears, Nose and Mouth. Neck: Full range of motion. No meningismus. Resp: Clear to auscultation bilaterally Cardio: Regular rate and rhythm, no murmurs Abd: Soft, non tender, non distended. Normal bowel sounds Skin: No petechiae or rashes Back: No midline or flank tenderness Ext: No cyanosis, or edema. Tenderness on the left thumb extensor. Positive Angel's. No warmth, erythema, restricted range of motion weakness. Neur: Awake and alert Psych: Normal Mood and Affect Results 24 hrs Current Medications Medications Dose Sig/Kate Start Time Status Last (Trade) Ordered Route PRN Stop Time Admin Dose Reason Admin Ibuprofen 600 mg ONCE ONCE 07/18/18 DC 07/18/18 (Motrin) PO 15:00 15:14 07/18/18 15:01 Procedures/MDM X-ray Wrist 3V Interpreted by me: Scaphoid: Normal Bones: No fracture Joints: No dislocation Foreign body: None. Impression-normal left wrist x-ray She has history, signs and symptoms consistent with de Quervain's tenosynovitis. There is no signs of septic arthritis, infection, fracture, dislocation, ischemia or deficits. She will be discharged home with instructions for ice, ibuprofen, she was placed in a left thumb spica splint. She is neurovascular intact at this point. She is advised to see orthopedist for further evaluation and treatment. She was advised she may need authorization from primary doctor for orthopedist visit. The patient was stable with no new complaints during the ER course. Clinically, there is no current evidence to suggest meningitis, sepsis, acute abdomen, pneumonia, stroke, acute coronary syndrome, pulmonary embolism, aortic dissection or any other emergent condition appearing to require further evaluation or hospitalization. Patient counseled regarding my diagnostic impression and care plan. Prior to discharge all questions answered. Pt agrees with treatment plan and understands strict return precautions. Pt is instructed to follow up with primary care provider within 24-48 hours. Precautionary instructions provided including instructions to return to the ER if not improving or for any worsening or changing symptoms or concerns. Departure Diagnosis: Primary Impression: Pain in wrist Laterality: left Qualified Codes: M25.532 - Pain in left wrist Condition: Stable Patient Instructions: Tendonitis Referrals: DOCTOR,NOT ON STAFF (PCP) JOSE BARAHONA MD Additional Instructions: Use splint for 2 weeks. Recommend ice at home as well. See activity therapy specialist for further evaluation treatment for possible injection for persistent pain. Recheck otherwise for new or worsening symptoms. Likely need authorization from primary doctor for orthopedist visit. EMMY RUBIO MD Jul 18, 2018 15:55
== END 2018-07-18 17:30 | disposition home or self-care (01) ==
LOC: FTE 12:41
DX: M25.532 Pain in left wrist (principal); J45.909 Unspecified asthma, uncomplicated
CPT/HCPCS: 29125; 73110; Z7502; Z7610